=== PATIENT | female | born 2000 | race Caucasian/White ===

== ENCOUNTER 2024-04-21 07:46 | Emergency (ER) | payer MEDICAID ==
[~2024-04-21] VITALS: Ht 167.6 cm; Wt 91.9 kg
[2024-04-21 09:06] LABS: BILIRUBIN,URINE SMALL (Neg); CLARITY,URINE SLIGHTLY CLOUDY (Clear); COLOR,URINE YELLOW (Yellow); GLUCOSE, URINE NEGATIVE (Neg); KETONES,URINE TRACE mg/dl (Neg); LEUKOCYTE ESTERASE ,URINE NEGATIVE (Neg); NITRITES, URINE NEGATIVE (Neg); OCCULT BLOOD,URINE NEGATIVE (Neg); PROTEIN,URINE NEGATIVE (Neg); UROBILINOGEN,URINE 0.2 E.U/dL (0.2-1.0)
[2024-04-21 09:06] LABS: BASOPHILS % (AUTO) 0.3 % (0-1); EOSINOPHILS % (AUTO) 0.6 % (0-6); HEMATOCRIT 43.3 % (35.0-45.0); HEMOGLOBIN 14.1 g/dl (12.0-16.0); LYMPHOCYTES # (AUTO) 1.5 X10'3 (1.1-4.8); LYMPHOCYTES % (AUTO) 19.6 % (21-51); MEAN CORPUSCULAR HEMOGLOBIN 28.1 PG (27.0-31.0); MEAN CORPUSCULAR HGB CONC 32.5 g/dL (33.0-36.5); MEAN CORPUSCULAR VOLUME 86.5 FL (78-98); MEAN PLATELET VOLUME 8.4 FL (7.4-10.4); MONOCYTES # (AUTO) 0.4 X10'3 (0-0.9); MONOCYTES % (AUTO) 5.7 % (2-12); NEUTROPHILS # (AUTO) 5.8 X10'3 (1.8-7.7); NEUTROPHILS % (AUTO) 73.8 % (42-75); PLATELET COUNT 271 X10'3 (140-440); RED CELL DISTRIBUTION WIDTH 15.2 % (11.5-14.5); WHITE BLOOD COUNT 7.9 X10'3 (4.5-11.0)
[2024-04-21 09:09] LABS: URINE HCG NEGATIVE (NEG)
[2024-04-21 09:12] LABS: ALANINE AMINOTRANSFERASE 25 U/L (12-78); ALBUMIN 3.7 G/DL (3.4-5.0); ALKALINE PHOSPHATASE 72 IU/L (46-116); ASPARTATE AMINO TRANSFERASE 21 U/L (10-37); BILIRUBIN,TOTAL 0.4 MG/DL (0.1-1.0); BLOOD UREA NITROGEN 9 MG/DL (7-18); BUN/CREATININE RATIO 11.3 (10.0-20.0); CALCIUM 8.6 MG/DL (8.5-10.1); GLUCOSE 114 MG/DL (70-104); LIPASE 40 U/L (16-77); TOTAL CARBON DIOXIDE 24.6 MMOL/L (24-32); TOTAL PROTEIN 7.3 G/DL (6.4-8.2); eCRCL 103 ML/MIN; eGFR 90 ML/MIN
[2024-04-21 09:35] LABS: UA COLLECTION TYPE NON-SPECIFIED
[2024-04-21 09:37] LABS: MUCUS STRANDS FEW /LPF (Neg); SQUAMOUS EPITHELIAL CELL,UR MANY /LPF (FEW)
[2024-04-21 09:38] LABS: BACTERIA,URINE 2+ /HPF (Neg); RBC,URINE 0-2 /HPF (0-2); TRANSITIONAL EPI CELLS,URINE FEW /HPF; WBC,URINE 0-4 /HPF (0-4)
[2024-04-21] MEDS: ondansetron/PF 4mg/2ml inj ONE (09:39)
[2024-04-21] MEDS: ondansetron/PF 4mg/2ml inj IV ONE (09:40)
[2024-04-21] MEDS: normal saline 1000ml 1,000 ML IV ONE (09:40)
[2024-04-21 09:42] LABS: ANION GAP 10 (8-16); CHLORIDE 104 MMOL/L (99-107); POTASSIUM 3.6 MMOL/L (3.5-5.1); SODIUM 139 MMOL/L (135-145)
[2024-04-21] MEDS ORDERED: HYDR-3965 PO (12:18)
[2024-04-21] MEDS ORDERED: PENI500T2 PO (12:22)
[2024-04-21] MEDS: HYDROcodone/acetaminophen 5mg/325mg tablet PO ONE (13:00)
[2024-04-21] MEDS: penicillin V potassium 500mg tablet PO ONE (13:08)
[2024-04-21 13:11] VITALS: BP 134/80; PULSE 89; RESP 16; TEMP 98.1; O2SAT 97
== END 2024-04-21 13:12 | disposition home or self-care (01) ==
LOC: ER 07:47
DX: J06.9 Acute upper respiratory infection, unspecified (principal); Z20.822 Contact with and (suspected) exposure to COVID-19; B97.89 Other viral agents as the cause of diseases classified elsewhere; R42 Dizziness and giddiness; R11.2 Nausea with vomiting, unspecified
CPT/HCPCS: 36415; 80053; 81001; 81025; 83690; 85025; 87502; 87503; 87811; 96374; 99283; J2405; J7030

== ENCOUNTER 2024-04-23 07:47 | Emergency (ER) | payer MEDICAID ==
[~2024-04-23] VITALS: Ht 167.6 cm; Wt 93.1 kg
[~2024-04-23 07:47] MED LIST: HYDR-3965 PO; PENI500T2 PO
[2024-04-23 07:49] VITALS: BP 137/93; PULSE 117; TEMP 97.9; O2SAT 95
[2024-04-23] MEDS: ondansetron 4mg rapidly disintigrating tab PO ONE (08:51)
[2024-04-23 08:53] VITALS: RESP 16
[2024-04-23] MEDS: ketorolac trometh 15mg/ml vial 15 MG/ML ML IM ONE (08:53)
[2024-04-23] MEDS ORDERED: ESCI-8 PO (09:33)
[2024-04-23] MEDS ORDERED: ONDA-243 PO (09:33)
[2024-04-23] MEDS ORDERED: HYDR-3686 PO (09:33)
== END 2024-04-23 10:17 | disposition home or self-care (01) ==
LOC: ER 07:48
DX: F41.9 Anxiety disorder, unspecified (principal); R51.9 Headache, unspecified; R42 Dizziness and giddiness; R07.89 Other chest pain; Z79.899 Other long term (current) drug therapy
CPT/HCPCS: 70450; 96372; 99285; J1885

== ENCOUNTER 2024-07-01 07:38 | Emergency (ER) | payer MEDICAID ==
[~2024-07-01] VITALS: Ht 167.6 cm; Wt 93.4 kg
[~2024-07-01 07:38] MED LIST changes: +ESCI-8 PO; -HYDR-3965 PO; +ONDA-243 PO; -PENI500T2 PO
[2024-07-01 09:10] LABS: BASOPHILS % (AUTO) 0.5 % (0-1); EOSINOPHILS # (AUTO) 0.1 X10'3 (0-0.9); EOSINOPHILS % (AUTO) 1.2 % (0-6); HEMATOCRIT 39.1 % (35.0-45.0); HEMOGLOBIN 12.9 g/dl (12.0-16.0); LYMPHOCYTES # (AUTO) 1.4 X10'3 (1.1-4.8); LYMPHOCYTES % (AUTO) 21.6 % (21-51); MEAN CORPUSCULAR HEMOGLOBIN 29.2 PG (27.0-31.0); MEAN CORPUSCULAR HGB CONC 33.1 g/dL (33.0-36.5); MEAN CORPUSCULAR VOLUME 88.4 FL (78-98); MEAN PLATELET VOLUME 7.9 FL (7.4-10.4); MONOCYTES # (AUTO) 0.3 X10'3 (0-0.9); MONOCYTES % (AUTO) 4.8 % (2-12); NEUTROPHILS # (AUTO) 4.8 X10'3 (1.8-7.7); NEUTROPHILS % (AUTO) 71.9 % (42-75); PLATELET COUNT 298 X10'3 (140-440); RED BLOOD COUNT 4.42 X10'6 (4.20-5.60); WHITE BLOOD COUNT 6.7 X10'3 (4.5-11.0)
[2024-07-01 09:16] LABS: ALANINE AMINOTRANSFERASE 19 U/L (12-78); ALBUMIN 3.5 G/DL (3.4-5.0); ALKALINE PHOSPHATASE 75 IU/L (46-116); ANION GAP 9 (8-16); ASPARTATE AMINO TRANSFERASE 13 U/L (10-37); BILIRUBIN,TOTAL 0.3 MG/DL (0.1-1.0); BLOOD UREA NITROGEN 11 MG/DL (7-18); BUN/CREATININE RATIO 15.3 (10.0-20.0); CALCIUM 8.5 MG/DL (8.5-10.1); CHLORIDE 107 MMOL/L (99-107); CREATININE 0.72 MG/DL (0.40-0.90); GLUCOSE 95 MG/DL (70-104); LIPASE 44 U/L (16-77); SODIUM 140 MMOL/L (135-145); TOTAL PROTEIN 6.9 G/DL (6.4-8.2); eCRCL 115 ML/MIN; eGFR > 90 ML/MIN
[2024-07-01 11:03] LABS: URINE HCG NEGATIVE (NEG)
[2024-07-01 11:12] LABS: BILIRUBIN,URINE NEGATIVE (Neg); CLARITY,URINE CLEAR (Clear); COLOR,URINE YELLOW (Yellow); GLUCOSE, URINE NEGATIVE (Neg); KETONES,URINE NEGATIVE (Neg); LEUKOCYTE ESTERASE ,URINE NEGATIVE (Neg); NITRITES, URINE NEGATIVE (Neg); OCCULT BLOOD,URINE NEGATIVE (Neg); PROTEIN,URINE NEGATIVE (Neg); UROBILINOGEN,URINE 0.2 E.U/dL (0.2-1.0)
[2024-07-01 11:18] LABS: UA COLLECTION TYPE NON-SPECIFIED
[2024-07-01 12:13] VITALS: BP 114/75; PULSE 90; RESP 16; TEMP 97.6; O2SAT 99
== END 2024-07-01 12:16 | disposition home or self-care (01) ==
LOC: ER 07:39
DX: R10.13 Epigastric pain (principal); F41.9 Anxiety disorder, unspecified
CPT/HCPCS: 36415; 71045; 80053; 81003; 81025; 83690; 85025; 93005; 99285

== ENCOUNTER 2024-12-11 20:54 | Emergency (ER) | payer MEDICAID ==
[~2024-12-11] VITALS: Ht 165.1 cm; Wt 73.2 kg
--- NOTE | 2024-12-11 22:13 | Physician Documentation ---
History of Present Illness ~ Chief Complaint: Groin Pain Stated Complaint: OVARIAN CYST Time Seen by MD: 22:11 Primary Medical Doctor: dr. teodoro PIERCE Patient is seen today with complaints of right lower quadrant/right-sided pelvic pain for two days. Patient denies any fevers or chills. Patient states he has had significant nausea and vomiting starting yesterday and has not been able to keep down any liquids today. Patient states she feels very thirsty and dehydrated and has intractable pelvic pain and nausea and vomiting. Patient denies any fevers or chills. She has no other concern or complaint at this time. Medication Reconciliation Allergies: Coded Allergies: No Known Allergies (Unverified , 12/11/24) Scheduled Escitalopram Oxalate (Escitalopram Oxalate), 1 TAB PO DAILY ONDANSETRON ODT 4mg tablet (Ondansetron Odt), 4-8 MG PO BID Scheduled PRN Hydrocodone Bit/Acetaminophen (Hydrocodone-Apap 10-325 Tablet), 1 TAB PO Q12H PRN PRN for pain ONDANSETRON ODT 4mg tablet (Ondansetron Odt), 1 TABLET PO Q6H PRN for nausea/vomiting Past Medical History Past Medical History: Anxiety Past Surgical History: noncontributory Lives In: Home Review of Systems Constitutional: Denies: chills, fever, weakness Eyes: Denies: pain, blurred vision ENT: Denies: ear pain, nose pain, throat pain, mouth pain Respiratory: Denies: cough, shortness of breath Cardiovascular: Denies: chest pain, palpitations Gastrointestinal: Denies: abdominal pain, nausea, vomiting Genitourinary: Denies: burning, dysuria Female Genitalia: Denies: vaginal discharge, pelvic pain Neurological: Denies: headache, dizziness Musculoskeletal: Denies: pain, swelling Integumentary: Denies: rash, lesions Allergic/Immunologic: Denies: hives, itching Hematologic/Lymphatic: Denies: no symptoms reported Psychiatric: Denies: depression, anxiety Physical Exam Vital Signs: Temperature: 97.1, Source: Oral, Heart Rate: 135, Respiratory Rate: 20, BP: 114/69, Pulse Oximetry: 98, Weight: 73.180 Physical Exam General: Awake and Alert, no acute distress. HEENT: Conjunctiva pink, Sclera clear, Mucus Membranes moist. Neck: Supple without masses and tenderness. Resp: Unlabored. Lungs clear to auscultation bilaterally. Heart: Regular Rate and rhythm, normal S1 and S2 without murmur, rub or gallop. Abdomen: On exam, abdomen is soft, nondistended, minimal tenderness to palpation in the right lower quadrant/pelvic area. No rebound tenderness, no guarding. Extremities: No cyanosis,clubbing or edema. Skin: Warm and Dry. Progress Results/Orders Results/Orders Completed Orders - FREDERICK LINDSEY MD Diphenhydramine Inj (Benadryl Inj.) (12/12/24 01:25) Medications Received in ER Medications (Trade) Dose Ordered Sig/Anayeli Route PRN Reason Start Time Stop Time Status Last Admin Dose Admin (Zofran ODT tablet) 8 mg ONCE STAT PO 12/11/24 22:11 12/11/24 22:14 DC 12/11/24 22:27 8 MG (OXY IR tablet) 10 mg ONCE STAT PO 12/11/24 22:11 12/11/24 22:14 DC 12/11/24 22:28 10 MG Sodium Chloride 1,000 ml @ 1,000 mls/hr ONCE ONCE IV 12/11/24 23:35 12/12/24 00:34 DC 12/12/24 01:12 1,000 MLS/HR (morphine inj.) 4 mg ONCE STAT IV 12/11/24 23:31 12/11/24 23:36 DC 12/12/24 01:05 4 MG (Compazine inj) 10 mg ONCE STAT IV 12/11/24 23:31 12/11/24 23:36 DC 12/12/24 01:06 10 MG (Benadryl inj.) 25 mg ONCE ONCE IV 12/12/24 01:25 12/12/24 01:26 DC 12/12/24 01:26 25 MG Vital Signs 12/11/24 12/11/24 12/11/24 12/12/24 20:57 21:36 22:28 01:05 Temp 97.1 Pulse 127 135 Resp 18 20 16 16 B/P (MAP) 125/62 114/69 (84) Pulse Ox 98 98 12/12/24 12/12/24 12/12/24 12/12/24 01:16 01:17 01:39 02:20 Pulse 110 114 110 Resp 16 16 16 B/P (MAP) 112/69 (83) 96/50 (65) 106/43 (64) Pulse Ox 100 99 98 O2 Flow Rate 0 0 0 12/12/24 12/12/24 12/12/24 12/12/24 02:34 02:34 03:00 03:28 Pulse 95 99 Resp 16 16 16 18 B/P (MAP) 111/63 (79) 115/61 (79) Pulse Ox 98 98 O2 Flow Rate 0 0 Laboratory Tests Test 12/12/24 00:03 White Blood Count 13.1 H Red Blood Count 4.99 Hemoglobin 14.5 Hematocrit 43.0 Mean Corpuscular Volume 86.2 Mean Corpuscular Hemoglobin 29.1 Mean Corpuscular Hemoglobin Concent 33.8 Red Cell Distribution Width 14.3 Platelet Count 312 Mean Platelet Volume 7.8 Neutrophils (%) (Auto) 83.9 H Lymphocytes (%) (Auto) 11.6 L Monocytes (%) (Auto) 4.2 Eosinophils (%) (Auto) 0.1 Basophils (%) (Auto) 0.2 Neutrophils # (Auto) 11.0 H Lymphocytes # (Auto) 1.5 Monocytes # (Auto) 0.6 Eosinophils # (Auto) 0.0 Basophils # (Auto) 0.0 CBC Comment Sodium Level 138 Potassium Level 3.9 Chloride Level 99 Carbon Dioxide Level 24.6 Anion Gap 14 Blood Urea Nitrogen 8 Creatinine 0.97 H Estimated GFR/1.73 m2 71 BUN/Creatinine Ratio 8.2 L Glucose Level 76 Lactic Acid Level 0.8 Calcium Level 9.3 Total Bilirubin 1.1 H Aspartate Amino Transf (AST/SGOT) 16 Alanine Aminotransferase (ALT/SGPT) 15 Alkaline Phosphatase 94 Total Protein 7.7 Albumin 4.2 Globulin 3.5 Albumin/Globulin Ratio 1.2 Chemistry Comments Medical Decision Making Findings Patient is seen today with complaints of right lower quadrant/right-sided pelvic pain for two days. Patient denies any fevers or chills. Patient states he has had significant nausea and vomiting starting yesterday and has not been able to keep down any liquids today. Patient states she feels very thirsty and dehydrated and has intractable pelvic pain and nausea and vomiting. Patient denies any fevers or chills. She has no other concern or complaint at this time. Patient did have ultrasound showing ovarian cysts. Zofran 4 mg ODT given. Patient did receive Oxy IR 10 mg in the ED today by mouth however patient was very nauseous and vomiting and likely vomited up the Oxy. IV was started and patient was given L of fluids along with Compazine 10 mg IV and morphine 4 mg IV. Patient reports good relief of symptoms and agreed to be discharged home. Patient will follow up with primary care in 2-5 days if no better as needed sooner and get referral to OB Gyne if needed. Prescription of Zofran sent to patient's pharmacy along with Tamms 10/325 mg to be taken as directed. Return to ED with any worsening, concerning or changing symptoms. Addendum I received sign-out on this patient at shift change, pending re-evaluation. On review of her testing, she does have a mild leukocytosis, but no other dangerous findings on her blood work. Pelvic ultrasound does not show any dangerous findings. A urinalysis was not obtained. Re-evaluation: The patient is lying in bed, states she feels better and would like to go home. I asked her she was having any urinary symptoms, and she said no. She did not want to stay to have a urine test. She states she just wants to go home. She will be discharged with symptomatic treatment and return precautions. Frederick Lindsey MD Departure Disposition: HOME / SELF CARE / HOMELESS Impression: Primary Impression: Ovarian cyst Qualified Codes: N83.201 - Unspecified ovarian cyst, right side Condition: Improved Discharge Instructions: Ovarian Cyst, [id number] Additional Instructions: Patient did have ultrasound showing ovarian cysts. Zofran 4 mg ODT given. Patient did receive Oxy IR 10 mg in the ED today by mouth however patient was very nauseous and vomiting and likely vomited up the Oxy. IV was started and patient was given L of fluids along with Compazine 10 mg IV and morphine 4 mg IV. Patient reports good relief of symptoms and agreed to be discharged home. Patient will follow up with primary care in 2-5 days if no better as needed sooner and get referral to OB Gyne if needed. Prescription of Zofran sent to patient's pharmacy along with Tamms 10/325 mg to be taken as directed. Return to ED with any worsening, concerning or changing symptoms. Referrals: NO PRIMARY CARE PROVIDER (PCP) Prescriptions Hydrocodone Bit/Acetaminophen (Hydrocodone-Apap 10-325 Tablet) 10mg/325mg Tablet 1 TAB PO Q12H PRN PRN for pain for 5 Days, #10 TAB Prov: CHELY DONG 12/12/24 ONDANSETRON ODT 4mg tablet (ONDANSETRON ODT) 4 Mg Tab.rapdis 4-8 MG PO BID for 7 Days, #14 TAB Prov: CHELY DONG 12/12/24 Signature Scribe Signature: No scribe Attestation: No scribe CHELY DONG Dec 11, 2024 22:13 FREDERICK LINDSEY MD Dec 12, 2024 03:36
[2024-12-11] MEDS: ondansetron 4mg rapidly disintigrating tab PO STA (22:27)
[2024-12-11] MEDS: oxyCODONE IR 5mg (immed. release) tablet PO STA (22:28)
--- NOTE | 2024-12-12 00:07 | RADIOLOGY REPORT ---
INDICATION: RIGHT GROIN PAIN TECHNIQUE: Multiple real-time grayscale transabdominal sonographic images along with color and duplex Doppler of the uterus and ovaries were obtained. COMPARISON: None FINDINGS: The uterus is anteverted and measures 7.0 x 4.5 x 2.8 cm. The endometrial stripe measures 0 .3 cm. No evidence of pelvic free fluid. Right ovary measures 3.5 x 2.3 x 1.7 cm with normal Doppler color flow. Anechoic cysts measure 1.2 x 0.9 x 1.0 cm and 1.2 x 1.1 x 1.0 cm, respectively. Left ovary measures 3.0 x 2.2 x 1.8 cm with normal Doppler color flow. IMPRESSION: 1. Grossly unremarkable pelvic ultrasound. Right ovarian cysts.
[2024-12-12 00:11] LABS: BASOPHILS % (AUTO) 0.2 % (0-1); EOSINOPHILS % (AUTO) 0.1 % (0-6); HEMOGLOBIN 14.5 g/dl (12.0-16.0); LYMPHOCYTES # (AUTO) 1.5 X10'3 (1.1-4.8); LYMPHOCYTES % (AUTO) 11.6 % (21-51); MEAN CORPUSCULAR HEMOGLOBIN 29.1 PG (27.0-31.0); MEAN CORPUSCULAR HGB CONC 33.8 g/dL (33.0-36.5); MEAN CORPUSCULAR VOLUME 86.2 FL (78-98); MEAN PLATELET VOLUME 7.8 FL (7.4-10.4); MONOCYTES # (AUTO) 0.6 X10'3 (0-0.9); MONOCYTES % (AUTO) 4.2 % (2-12); NEUTROPHILS % (AUTO) 83.9 % (42-75); PLATELET COUNT 312 X10'3 (140-440); RED BLOOD COUNT 4.99 X10'6 (4.20-5.60); RED CELL DISTRIBUTION WIDTH 14.3 % (11.5-14.5); WHITE BLOOD COUNT 13.1 X10'3 (4.5-11.0)
[2024-12-12] MEDS ORDERED: ONDA-243 PO (00:27)
[2024-12-12] MEDS ORDERED: HYDR-3973 PO (00:27)
[2024-12-12 00:28] LABS: ALANINE AMINOTRANSFERASE 15 U/L (12-78); ALBUMIN 4.2 G/DL (3.4-5.0); ALBUMIN/GLOBULIN RATIO 1.2 (1.1-1.5); ALKALINE PHOSPHATASE 94 IU/L (46-116); ANION GAP 14 (8-16); ASPARTATE AMINO TRANSFERASE 16 U/L (10-37); BILIRUBIN,TOTAL 1.1 MG/DL (0.1-1.0); BLOOD UREA NITROGEN 8 MG/DL (7-18); BUN/CREATININE RATIO 8.2 (10.0-20.0); CALCIUM 9.3 MG/DL (8.5-10.1); CHLORIDE 99 MMOL/L (99-107); CREATININE 0.97 MG/DL (0.40-0.90); GLUCOSE 76 MG/DL (70-104); POTASSIUM 3.9 MMOL/L (3.5-5.1); SODIUM 138 MMOL/L (135-145); TOTAL CARBON DIOXIDE 24.6 MMOL/L (24-32); TOTAL PROTEIN 7.7 G/DL (6.4-8.2); eCRCL 81 ML/MIN; eGFR 71 ML/MIN
[2024-12-12] MEDS: morphine 4 MG/ML inj SYRINge IV STA (01:05)
[2024-12-12] MEDS: proCHLORperazine 10 MG/2 ml inj IV STA (01:06)
[2024-12-12] MEDS: normal saline 1000ml 1,000 ML IV ONE (01:12)
[2024-12-12] MEDS: diphenhydrAMINE 50 mg/ml inj IV ONE (01:26)
[2024-12-12 03:49] VITALS: BP 109/62; PULSE 102; RESP 16; TEMP 97.7; O2SAT 98
== END 2024-12-12 03:51 | disposition home or self-care (01) ==
LOC: ER 20:55
DX: N83.201 Unspecified ovarian cyst, right side (principal); Z79.899 Other long term (current) drug therapy
CPT/HCPCS: 36415; 76856; 80053; 83605; 85025; 93976; 96361; 96374; 96375; 99285; J0780; J1200; J2270; J7030